=== PATIENT | female | born 1970 | race Caucasian/White ===

== ENCOUNTER 2018-03-13 15:45 | Emergency (ER) | payer OTHER ==
[~2018-03-13] VITALS: Ht 167.6 cm; Wt 72.6 kg
[~2018-03-13 15:45] MED LIST: [UNRECOGNIZED DRUG - OTHER]
== END 2018-03-13 19:42 | disposition home or self-care (01) ==
LOC: ER 15:45
DX: N93.8 Other specified abnormal uterine and vaginal bleeding (principal); D64.9 Anemia, unspecified; N83.292 Other ovarian cyst, left side; N83.291 Other ovarian cyst, right side; R10.2 Pelvic and perineal pain